=== PATIENT | male | born 1985 | race Caucasian/White ===

== ENCOUNTER 2023-09-01 14:24 | Emergency (ER) | payer SELFPAY ==
[~2023-09-01] VITALS: Ht 185.4 cm; Wt 70.3 kg
[2023-09-01 14:45] VITALS: O2SAT 98
[2023-09-01] MEDS ORDERED: FAMOTIDINE20 MG PO (15:48)
== END 2023-09-01 15:55 | disposition home or self-care (01) ==
LOC: FSED 14:54
DX: R10.13 Epigastric pain (principal); K29.70 Gastritis, unspecified, without bleeding; R71.8 Other abnormality of red blood cells
CPT/HCPCS: 80053; 80307; 81003; 85025; 99283